=== PATIENT | male | born 1970 | race Caucasian/White ===

== ENCOUNTER 2019-07-07 08:48 | Emergency (ER) | payer BC, OTHER ==
[~2019-07-07] VITALS: Ht 175.3 cm; Wt 77.1 kg
[~2019-07-07 08:48] MED LIST: CIPR500T94 PO; HYDR-3164 PO; ONDA4TAB7 PO; TAMS0.4C97 PO
[2019-07-07] MEDS ORDERED: ONDANSETRON PF 4 MG/2 ML VIAL. IV ONE (09:15)
[2019-07-07] MEDS ORDERED: IV NORMAL SALINE 1000ML BAG 1,000 ML IV ONE (09:15)
[2019-07-07] MEDS ORDERED: KETOROLAC 15 MG/ML VIAL. IV ONE (09:15)
[2019-07-07 09:17] LABS: BILIRUBIN,URINE NEGATIVE (NEG); CLARITY,URINE CLEAR; COLOR,URINE YELLOW; NITRITE,URINE NEGATIVE (NEG); PROTEIN,URINE NEGATIVE (NEG-TRACE); UROBILINOGEN,URINE 0.2 mg/dL (0.2 mg/dL)
--- NOTE | 2019-07-07 09:28 | PHYS DOC ---
Past Medical History Past Medical History: No Pertinent History Past Surgical History: No Surgical History Alcohol Use: None Drug Use: None Adult General Chief Complaint Chief Complaint: FLANK PAIN HPI HPI Patient is a 48 year old male, accompanied by his spouse, with complaints of left flank pain, nausea, vomiting, increased urine frequency with small amounts of urine produced since midnight. Pt reports hx of a kidney stone in 2016 and states that these sx are similar to the sx he had at that time. Pt currently r ates his pain a 7/10 on the pain scale. He denies any alleviating or exacerbating factors. Review of Systems Review of Systems Constitutional: Denies fever or chills [] Eyes: Denies change in visual acuity, redness, or eye pain [] HENT: Denies nasal congestion or sore throat [] Respiratory: Denies cough or shortness of breath [] Cardiovascular: No additional information not addressed in HPI [] GI: Denies abdominal pain, or diarrhea; see HPI] : Denies hematuria; See HPI Musculoskeletal: Denies back pain or joint pain [] Integument: Denies rash or skin lesions [] Neurologic: Denies headache, focal weakness or sensory changes [] Complete systems were reviewed and found to be within normal limits, except as documented in this note. Current Medications Current Medications Current Medications Medications (Trade) Dose Ordered Sig/[facility] Start Time Stop Time Status Last Admin Dose Admin Ketorolac Tromethamine (Toradol 15mg Vial) 15 mg 1X ONCE 07/07/19 09:15 07/07/19 09:16 DC 07/07/19 09:26 15 MG Ondansetron HCl (Zofran) 4 mg 1X ONCE 07/07/19 09:15 07/07/19 09:16 DC 07/07/19 09:24 4 MG Sodium Chloride 1,000 ml @ 1,000 mls/hr 1X ONCE 07/07/19 09:15 07/07/19 10:14 DC 07/07/19 09:23 1,000 MLS/HR Allergies Allergies Allergies Coded Allergies Type Severity Reaction Last Updated Verified Sulfa (Sulfonamide Antibiotics) Allergy Intermediate "makes me sick" 07/07/19 Yes Physical Exam Physical Exam Constitutional: Well developed, well nourished, no acute distress, non-toxic appearance. [] HENT: Normocephalic, atraumatic, bilateral external ears normal, oropharynx moist, no oral exudates, nose normal. [] Eyes: PERRLA, EOMI, conjunctiva normal, no discharge. [] Neck: Normal range of motion, no stridor. [] Cardiovascular:Heart rate regular rhythm, no murmur [] Lungs & Thorax: Bilateral breath sounds clear to auscultation [] Abdomen: Bowel sounds normal, soft, LLQ TTP, no rebound tenderness, no guarding, no masses, no pulsatile masses. [] Skin: Warm, dry, no erythema, no rash. [] Back: No tenderness, no CVA tenderness. [] Extremities: No cyanosis, no clubbing, ROM intact, no edema. [] Neurologic: Alert and oriented X 3, no focal deficits noted. [] Psychologic: Affect normal, judgement normal, mood normal. [] Current Patient Data Lab Values Laboratory Tests Test 07/07/19 08:59 07/07/19 09:14 Urine Collection Type Void Urine Color Yellow Urine Clarity Clear Urine pH 8.0 Urine Specific [place] 1.020 Urine Protein Negative mg/dL (NEG-TRACE) Urine Glucose (UA) Negative mg/dL (NEG) Urine Ketones (Stick) Negative mg/dL (NEG) Urine Blood Negative (NEG) Urine Nitrite Negative (NEG) Urine Bilirubin Negative (NEG) Urine Urobilinogen Dipstick 0.2 mg/dL (0.2 mg/dL) Urine Leukocyte Esterase Negative (NEG) Urine RBC 6-10 /HPF (0-2) Urine WBC 1-4 /HPF (0-4) Urine Squamous Epithelial Cells Occ /LPF Urine Bacteria Few /HPF (0-FEW) Urine Mucus Marked /LPF White Blood Count 14.1 x10^3/uL (4.0-11.0) H Red Blood Count 4.98 x10^6/uL (4.30-5.70) Hemoglobin 15.6 g/dL (13.0-17.5) Hematocrit 44.4 % (39.0-53.0) Mean Corpuscular Volume 89 fL (79-100) Mean Corpuscular Hemoglobin 31 pg (25-35) Mean Corpuscular Hemoglobin Concent 35 g/dL (31-37) Red Cell Distribution Width 13.1 % (11.5-14.5) Platelet Count 320 x10^3/uL (140-400) Neutrophils (%) (Auto) 89 % (31-73) H Lymphocytes (%) (Auto) 7 % (24-48) L Monocytes (%) (Auto) 4 % (0-9) Eosinophils (%) (Auto) 0 % (0-3) Basophils (%) (Auto) 0 % (0-3) Neutrophils # (Auto) 12.6 x10^3/uL (1.8-7.7) H Lymphocytes # (Auto) 1.0 x10^3/uL (1.0-4.8) Monocytes # (Auto) 0.5 x10^3/uL (0.0-1.1) Eosinophils # (Auto) 0.0 x10^3/uL (0.0-0.7) Basophils # (Auto) 0.0 x10^3/uL (0.0-0.2) Platelet Estimate Pending Sodium Level 139 mmol/L (136-145) Potassium Level 4.1 mmol/L (3.5-5.1) Chloride Level 101 mmol/L (98-107) Carbon Dioxide Level 30 mmol/L (21-32) Anion Gap 8 (6-14) Blood Urea Nitrogen 16 mg/dL (8-26) Creatinine 1.3 mg/dL (0.7-1.3) Estimated GFR (Cockcroft-Gault) 58.9 BUN/Creatinine Ratio 12 (6-20) Glucose Level 135 mg/dL (70-99) H Calcium Level 9.3 mg/dL (8.5-10.1) Total Bilirubin 0.6 mg/dL (0.2-1.0) Aspartate Amino Transferase (AST) 24 U/L (15-37) Alanine Aminotransferase (ALT) 34 U/L (16-63) Alkaline Phosphatase 86 U/L (46-116) Total Protein 7.9 g/dL (6.4-8.2) Albumin 4.0 g/dL (3.4-5.0) Albumin/Globulin Ratio 1.0 (1.0-1.7) Laboratory Tests 07/07/19 09:14 Laboratory Tests 07/07/19 09:14 EKG EKG [] Radiology/Procedures Radiology/Procedures PROCEDURE: CT ABDOMEN PELVIS WO CONTRAST EXAM: CT Abdomen and Pelvis without IV contrast CLINICAL HISTORY: Left flank pain. COMPARISON: 06/12/2016 TECHNIQUE: Helical CT of the abdomen and pelvis without intravenous contrast. Axial, coronal and sagittal reformatted images were generated. PQRS compliance statement - One or more of the following individualized dose reduction techniques were utilized for this study: 1. Automated exposure control 2. Adjustment of the mA and/or kV according to patient size 3. Use of iterative reconstruction technique FINDINGS: Lack of intravenous contrast limits evaluation of solid organs, vasculature, and lymph nodes. Lower chest: Dependent opacities in lower lobes bilaterally likely atelectasis or scarring. Abdomen and Pelvis: No focal liver lesion. Gallbladder is normal. Spleen is unremarkable. Adrenal glands are normal. Pancreas is unremarkable. A 4 mm calculus is seen dependently within the left bladder or at the left ureterovesicular junction. Enlargement and edematous appearance of the left kidney with mild associated perinephric and periureteral infiltration is noted. Nonobstructing bilateral renal calculi are seen. Mild left hydroureter. No hydronephrosis. Moderate colonic stool content is seen. No evidence for bowel obstruction. A few colonic diverticula are noted. Abdominal pelvic ascites. No abdominal or pelvic lymphadenopathy by size criteria. Small fat-containing periumbilical hernia. Bones: Degenerative changes of spine are seen. No aggressive osseous lesion. IMPRESSION: 1. 4 mm calculus at the left ureterovesicular junction or dependently within the left bladder. 2. Associated edema of the left kidney with perinephric and periureteral infiltration may be reactive from recent passage of calculus however superimposed infection would result in similar appearance. 3. Multiple additional nonobstructing bilateral renal calculi. 4. No bowel obstruction.[] Course & Med Decision Making Course & Med Decision Making Pertinent Labs and Imaging studies reviewed. (See chart for details) Dx: left kidney stone, nausea, vomiting Prescription written for flomax, hydrocodone, and zofran. Follow up with Dr. Minor next week. Return to the ER if symptoms worsen. Use the urine strainer provided to strain all urine Patient verbalized an understanding of home care, medications, follow-up, and return to ED instructions and was in agreement with the plan of care. [] Dragon Disclaimer Dragon Disclaimer This electronic medical record was generated, in whole or in part, using a voice recognition dictation system. Departure Departure Impression: Primary Impression: Kidney stone on left side Additional Impression: Ureteral calculus, left Disposition: 01 HOME, SELF-CARE Condition: STABLE Referrals: NO PCP (PCP) LEEROY LE MD Patient Instructions: Kidney Stones, [id number] Additional Instructions: Fill the prescriptions and use as directed. Strain all urine in the strainer provided and collect the stone in the specimen cup provided to take with you to follow up appointment. Follow up with Dr. Le next week, call today for an appointment. Return to the ER if your symptoms worsen. Scripts Ondansetron (ONDANSETRON ODT) 4 Mg Tab.rapdis 1 TAB PO PRN Q6-8HRS PRN for NAUSEA/VOMITING for 4 Days, #16 TAB 0 Refills Prov: JEFF PAGAN BOBCAT DRIVER/LABOR 07/07/19 Hydrocodone Bit/Acetaminophen (HYDROCODONE-APAP 5-325 ) 1 Tab Tablet 1 TAB PO PRN Q6HRS PRN for PAIN for 3 Days, #12 TAB 0 Refills Prov: JEFF PAGAN BOBCAT DRIVER/LABOR 07/07/19 Tamsulosin Hcl (FLOMAX) 0.4 Mg Cap.er.24h 1 CAP PO DAILY for 10 Days, #10 CAP 0 Refills Prov: JEFF PAGAN BOBCAT DRIVER/LABOR 07/07/19 Problem Qualifiers JEFF PAGAN APRN Jul 07, 2019 09:28
[2019-07-07 09:34] LABS: BACTERIA,URINE FEW /HPF (0-FEW); SQUAMOUS EPITHELIAL CELL,UR OCC /LPF
[2019-07-07 09:35] LABS: CALCIUM 9.3 mg/dL (8.5-10.1); CREATININE 1.3 mg/dL (0.7-1.3); GFR 58.9; POTASSIUM 4.1 mmol/L (3.5-5.1)
[2019-07-07 09:42] LABS: TOTAL BILIRUBIN 0.6 mg/dL (0.2-1.0); TOTAL PROTEIN 7.9 g/dL (6.4-8.2)
[2019-07-07 10:14] LABS: BASO % 0 % (0-3); EOS % 0 % (0-3); HEMATOCRIT 44.4 % (39.0-53.0); HEMOGLOBIN 15.6 g/dL (13.0-17.5); LYMPH % 7 % (24-48); MEAN CORPUSCULAR HEMOGLOBIN 31 pg (25-35); MEAN CORPUSCULAR HGB CONC 35 g/dL (31-37); MEAN CORPUSCULAR VOLUME 89 fL (79-100); MONO # 0.5 x10^3/uL (0.0-1.1); MONO % 4 % (0-9); NEUT # 12.6 x10^3/uL (1.8-7.7); NEUT % 89 % (31-73); PLATELET COUNT 320 x10^3/uL (140-400); RED BLOOD COUNT 4.98 x10^6/uL (4.30-5.70); RED CELL DISTRIBUTION WIDTH 13.1 % (11.5-14.5); WHITE BLOOD COUNT 14.1 x10^3/uL (4.0-11.0)
--- NOTE | 2019-07-07 10:34 | RAD ---
EXAM: CT Abdomen and Pelvis without IV contrast CLINICAL HISTORY: Left flank pain. COMPARISON: 06/12/2016 TECHNIQUE: Helical CT of the abdomen and pelvis without intravenous contrast. Axial, coronal and sagittal reformatted images were generated. PQRS compliance statement - One or more of the following individualized dose reduction techniques were utilized for this study: 1. Automated exposure control 2. Adjustment of the mA and/or kV according to patient size 3. Use of iterative reconstruction technique FINDINGS: Lack of intravenous contrast limits evaluation of solid organs, vasculature, and lymph nodes. Lower chest: Dependent opacities in lower lobes bilaterally likely atelectasis or scarring. Abdomen and Pelvis: No focal liver lesion. Gallbladder is normal. Spleen is unremarkable. Adrenal glands are normal. Pancreas is unremarkable. A 4 mm calculus is seen dependently within the left bladder or at the left ureterovesicular junction. Enlargement and edematous appearance of the left kidney with mild associated perinephric and periureteral infiltration is noted. Nonobstructing bilateral renal calculi are seen. Mild left hydroureter. No hydronephrosis. Moderate colonic stool content is seen. No evidence for bowel obstruction. A few colonic diverticula are noted. Abdominal pelvic ascites. No abdominal or pelvic lymphadenopathy by size criteria. Small fat-containing periumbilical hernia. Bones: Degenerative changes of spine are seen. No aggressive osseous lesion. IMPRESSION: 1. 4 mm calculus at the left ureterovesicular junction or dependently within the left bladder. 2. Associated edema of the left kidney with perinephric and periureteral infiltration may be reactive from recent passage of calculus however superimposed infection would result in similar appearance. 3. Multiple additional nonobstructing bilateral renal calculi. 4. No bowel obstruction. Electronically signed by: Teo Mckeon MD (07/07/2019 10:31 AM) [facility]
[2019-07-07] MEDS ORDERED: TAMS0.4C97 PO (10:50)
[2019-07-07] MEDS ORDERED: ONDA4TAB12 PO (10:50)
[2019-07-07] MEDS ORDERED: HYDR-2761 PO (10:50)
[2019-07-07 11:00] VITALS: BP 134/80
[2019-07-07 11:43] LABS: % BANDS 3 % (0-9); % LYMPHS 5 % (24-48); % MONOS 2 % (0-10); % SEGS 90 % (35-66)
[2019-07-07 11:44] LABS: PLT ESTIMATE ADEQUATE (ADEQUATE)
== END 2019-07-07 11:08 | disposition home or self-care (01) ==
LOC: ER 08:48
DX: N20.2 Calculus of kidney with calculus of ureter (principal); R11.2 Nausea with vomiting, unspecified; Z88.2 Allergy status to sulfonamides
CPT/HCPCS: 36415; 74176; 80053; 81001; 85007; 85025; 96361; 96374; 96375; 99285; J1885; J2405; J7030